=== PATIENT | female | born 1975 | race Two or more races ===

== ENCOUNTER 2016-12-03 16:46 | Inpatient (IN) | payer BC ==
[~2016-12-03] VITALS: Ht 154.9 cm; Wt 74.1 kg
[~2016-12-03 16:46] MED LIST: LAC PO; MAC100 PO; ZOF4 PO
--- NOTE | 2016-12-03 17:11 | NUR ---
PT IS A 41 YEAR OLD FEMALE, PRESENTS TO ED VIA [facility] FROM HOME, WITH C/O ALOC. PER MEDIC, FATHER FOUND PT SUPINE ON FLOOR AND CALLED 911. PT WAS RECENTLY DX WITH KIDNEY INFECTION. PT TAKES 2 UNKNOWN ANTIBIOTICS AND SYNTHROID. UPON ARRIVAL PT GCS OF 3. EYE RESPONSE-NO RESPONSE, VERBAL RESPONSE- NO RESPONSE, MOTOR RESPONSE-NO RESPONSE. DID STERNAL RUB ON PT NO RESPONSE. DID ARM DROP, NO RESPONSE, THEN DID AN ARM FACE DROP AND NO RESPONSE (ARM FELL ONTO FACE). UPON ASSESSMENT, USED X1 AMMONIA INHALANT ON PT, AND NOTICED EYE MOVEMENT WITH EYELIDS CLOSED, THEN PT STARTED OPENING EYES LOOKING AROUND. CALLED PTS NAME AND PT DID A LITTLE GRUNT, AND CLOSED EYES AGAIN. PUPIL REACTION WAS BRISK AND EQUAL. 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 VITAL SIGNS ARE STABLE. PT BREATHING IS EVEN AND UNLABORED, NO S/S OF RESPRAITORY DISTRESS. PT AWIAITING MSE.
[2016-12-03 17:22] LABS: AMPHETAMINE QUAL UR NONE DETECTED (NEG <=1000)
--- NOTE | 2016-12-03 17:35 | NUR ---
PTS GAVE ME PTS DR. DR. TRE NICOLE [phone]
--- NOTE | 2016-12-03 17:36 | NUR ---
POT PULLER AT BEDSIDE COLLECTING BLOOD.PT RESP EVEN AND UNLABORED, PT REMAINS ONCARDIAC MONITOR NSR @85
--- NOTE | 2016-12-03 17:37 | NUR ---
1 LITER FLUIDS NOW INFUSING PER ORDERS.
--- NOTE | 2016-12-03 17:44 | NUR ---
PT LEAVING FOR CT WITH SIDERAILS UP FOR SAFETY.RESP EVEN AND UNLABORED
--- NOTE | 2016-12-03 17:47 | NUR ---
PT TAKEN TO CT VIA RNOEMI.
[2016-12-03 17:50] LABS: BASOPHIL % 0.2 % (0-2); PLATELET COUNT 257 x10^3mcL (130-400); RED CELL DISTRIBUTION WIDTH 12.8 % (11.5-14.5)
--- NOTE | 2016-12-03 17:54 | NUR ---
I ASKE DPTS IF PT TAKES ANY OTHER MEDICATION THAT IS PRESCRIBED, FOR ANXIETY POSSIBLY. PTS REPLIED "UMMM I THINK SOMETHING CALLED LORAZEPAM".
--- NOTE | 2016-12-03 17:57 | NUR ---
PT BACK FROM CT VIA GURNEY, WITHOUT ICNIDENCE.
[2016-12-03 17:59] LABS: CALCIUM 8.1 mg/dL (8.5-10.1); CARBON DIOXIDE 28.3 mmol/L (21-32); CHLORIDE SERUM 106 mmol/L (98-107); CREATININE SERUM 0.7 mg/dL (0.6-1.0); GFR1 > 60 mL/min; GLUCOSE SERUM 128 mg/dL (74-106); POTASSIUM SERUM 4.2 mmol/L (3.5-5.1); SODIUM SERUM 142 mmol/L (136-145)
[2016-12-03 18:03] LABS: ALBUMIN 3.7 g/dL (3.4-5.0); ALKALINE PHOSPHATASE 71 U/L (46-116); BILIRUBIN TOTAL 0.61 mg/dL (0.20-1.00); TOTAL PROTEIN, SERUM 7.3 g/dL (6.4-8.2)
[2016-12-03 18:20] LABS: ALT/SGPT 23 U/L (14-59); AST/SGOT 20 U/L (15-37)
--- NOTE | 2016-12-03 18:26 | NUR ---
PT CONVERSING WITH PT AT THIS TIME.
[2016-12-03] MEDS ORDERED: LEXAPRO5 M1 PO (19:37)
[2016-12-03] MEDS ORDERED: LEXAPRO20 MG PO (19:38)
[2016-12-03] MEDS ORDERED: ATIVAN0.5 M1 PO (19:38)
--- NOTE | 2016-12-03 19:39 | NUR ---
ATTEMPTED TO ROAD TEST PT AND PTS WAS STILL VERY UNSTEADY AND DECIDED TO BE ADMITTED TO THE HOSPITAL.
--- NOTE | 2016-12-03 19:57 | NUR ---
REPORT CALLED TO GABRIEL TO ASSUME CARE OF PT ON TELE FLOOR.
[2016-12-03 20:07] LABS: AMYLASE 43 U/L (25-115); LIPASE 149 IU/L (73-393); MAGNESIUM 1.6 mg/dL (1.8-2.4); PHOSPHOROUS 3.1 mg/dL (2.5-4.9)
[2016-12-03 20:11] LABS: CHOLESTEROL 209 mg/dL (<200); CHOLESTEROL/HDL RATIO 6.1; HDL CHOLESTEROL 34 mg/dL (40-60); TRIGLYCERIDES 461 mg/dL (<150)
--- NOTE | 2016-12-03 20:16 | NUR ---
PT TRANSPORTED TO [facility]IA [facility] ON CM BY WADE Cameron RN AND ERIC CONLEY. PT IN NAD
[2016-12-03 20:17] LABS: T3 TOTAL 1.04 ng/mL
[2016-12-03 20:32] LABS: FREE T4 0.7 ng/dL (0.76-1.46); FREE THYROXINE INDEX 1.9 ug/dL (1.4-4.5)
[2016-12-03 20:44] VITALS: BP 137/68
--- NOTE | 2016-12-03 20:55 | NUR ---
RECEIVED PATIENT FROM ED VIA GUERNOEMI, PATIENT WITH GENERALIZED WEAKNESS, SPOUSE AT BEDSIDE, ALERT AND ORIENTED, NO SOB NOTED, PATIENT WITH C/O PAIN TO LEFT AND RIGHT FLANK PAIN AND WILL MEDICATE ORDERED, ORIENTED PATIENT TO ROOM AND SURROUNDINGS, BED IN LOW POSITION, BED RAILS UP X 2, CALL LIGHT WITHIN REACH, WILL ENDORSE CARE TO GABRIEL SANDERS
[2016-12-03 20:57] LABS: microscopic required? NO
--- NOTE | 2016-12-03 21:00 | NUR ---
RECEIVED PT FROM NYDIA SANDERS. PT AWAKE/LETHARGIC. SHIVERING, AFEBRILE . DENIES PAIN. DENIES SOB ON RA. IV PATENT. DR CEE AT BEDSIDE. AT BEDSIDE. NO ACUTE DISTRESS. ORIENTED TO ROOM AND SURROUNDINGS. CALL LIGHT WITHIN REACH, BED IN LOW POSITION. WILL CONTINUE TO MONITOR.
[2016-12-03 21:07] LABS: UA SPECIFIC GRAVITY 1.025 (1.005-1.035); urine erythrocyte NEGATIVE (NEGATIVE)
--- NOTE | 2016-12-04 00:15 | NUR ---
PT RESTING AT THIS TIME IN NO ACUTE DISTRESS. RR EVEN AND UNLABORED. IV PATENT AND INFUSING WELL WITH NO S/S OF INFILTRATION. CALL LIGHT WITHIN REACH, BED IN LOW POSITION. WILL CONTINUE TO MONITOR.
[2016-12-04 06:00] VITALS: BP 124/76
[2016-12-04 06:19] LABS: BASOPHIL % 0.4 % (0-2); PLATELET COUNT 223 x10^3mcL (130-400); RED CELL DISTRIBUTION WIDTH 12.8 % (11.5-14.5)
[2016-12-04 06:27] LABS: CALCIUM 8.4 mg/dL (8.5-10.1); CARBON DIOXIDE 26.9 mmol/L (21-32); CHLORIDE SERUM 104 mmol/L (98-107); CREATININE SERUM 0.5 mg/dL (0.6-1.0); GFR1 > 60 mL/min; GLUCOSE SERUM 92 mg/dL (74-106); MAGNESIUM 2.3 mg/dL (1.8-2.4); PHOSPHOROUS 3.1 mg/dL (2.5-4.9); POTASSIUM SERUM 3.9 mmol/L (3.5-5.1); SODIUM SERUM 140 mmol/L (136-145)
--- NOTE | 2016-12-04 07:25 | NUR ---
REASSESSMENT DONE. PT AWAKE, COOPERATIVE OF CARE. A&O x4, DENIES CP, SOB, ABD PAIN. GENERALIZED WEAKNESS NOTED. PT TO AKS FOR HELP WHEN AMBULATING (EXPLAINED). SKIN INTACT. IV INFUSING WELL TO LAC 20 GAUGE LAC NS AT 50ML/HR. BED IN LOWEST POSITION, CALL LIGHT WITHIN REACH. WILL CONTINUE TO MONITOR.
[2016-12-04 08:55] VITALS: BP 101/74
--- NOTE | 2016-12-04 12:00 | NUR ---
PT IN LOW FOWLERS. NO DISTRESS NOTED. PT DENIES ANY DISCOMFORT. STATES FEELING SLIGHTLY STRONGER. CALL LIGHT WITHIN REACH.
[2016-12-04 13:07] VITALS: BP 118/75
--- NOTE | 2016-12-04 13:20 | NUR ---
PT C/O OF GENERALIZED WEAKNESS. VS STABLE 118/75; 98.2; 79; 16; 98% ROOM AIR. BLOOD GLUCOSE: 153. PT DENIES CP, SOB. DR MAGALLANES INFORMED OF PT STATUS. CALL LIGHT WITHIN REACH. WILL CONTINUE TO MONITOR.
[2016-12-04 17:23] VITALS: BP 123/79
--- NOTE | 2016-12-04 18:45 | NUR ---
NEW IV BAG HUNG, PT TOLERATING WELL. PT MORE TALKATIVE, STATES FEELING BETTER. NO DISTRESS, DENIES CP, SOB. CALL LIGHT WITHIN REACH.
--- NOTE | 2016-12-04 19:47 | NUR ---
RECEIVED PT FROM PREVIOUS SHIFT. PT A/OX4. DENIES PAIN. DENIES SOB. NO ACUTE DISTRESS. IV PATENT. CALL LIGHT WITHIN REACH, BED IN LOW POSITION. WILL CONTINUE TO MONITOR.
[2016-12-04 21:27] VITALS: BP 129/73
--- NOTE | 2016-12-05 00:19 | NUR ---
PT RESTING AT THIS TIME IN NO ACUTE DISTRESS. RR EVEN AND UNLABORED. IV PATENT. CALL LIGHT WITHIN REACH, BED IN LOW POSITION. WILL CONTINUE TO MONITOR.
[2016-12-05 05:58] VITALS: BP 127/82
--- NOTE | 2016-12-05 07:25 | NUR ---
REASSESSMENT DONE. PT AWAKE, COOPERATIVE OF CARE. GENERALIZED WEAKNESS NOTED. PT STATES FEELING A LITTLE IMPROVEMENT ON WEAKNESS. PT STATES VAGINAL BLEEDING, STATES PREVIOUSLY BLEEDING THREE MONTHS AGO UNTIL THIS MORNING. IV INFUSING WELL TO LAC #20, NS AT 50ML/HR. BED IN LOWEST POSITION, CALL LIGHT WITHIN REACH. WILL CONTINUE TO MONITOR.
[2016-12-05 07:28] LABS: CALCIUM 8.4 mg/dL (8.5-10.1); CARBON DIOXIDE 25.3 mmol/L (21-32); CHLORIDE SERUM 105 mmol/L (98-107); CREATININE SERUM 0.6 mg/dL (0.6-1.0); GFR1 > 60 mL/min; GLUCOSE SERUM 101 mg/dL (74-106); POTASSIUM SERUM 3.8 mmol/L (3.5-5.1); SODIUM SERUM 140 mmol/L (136-145)
[2016-12-05 07:54] LABS: BASOPHIL % 0.3 % (0-2); PLATELET COUNT 238 x10^3mcL (130-400); RED CELL DISTRIBUTION WIDTH 13.2 % (11.5-14.5)
--- NOTE | 2016-12-05 08:40 | NUR ---
DR. MAGALLANES MADE AWARE OF PT'S C/O VAGINAL BLEEDING.
[2016-12-05 09:51] VITALS: BP 137/83
--- NOTE | 2016-12-05 12:44 | NUR ---
PT SITTING AT SIDE OF BED. PT AMBULATORY WITH STEADY GAIT NOTED. PT STATES FEELING BETTER. ABLE TO AMBULATE WITH EASE. CALL LIGHT WITHIN REACH.
[2016-12-05 14:15] VITALS: BP 128/78
--- NOTE | 2016-12-05 14:40 | NUR ---
P.T. 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 S:Pt WAS SEEN AWAKE & ALERT IN BED, SPEAKS SYRIAN/DIVEHI; SPEECH CLEAR; ORIENTED x4, ABLE TO FOLLOW COMMANDS, AGREEABLE & COOPE- RATIVE W/ P.T.; NO C/O PAIN OR DIZZINESS AT THIS TIME; EXPRESSES SHE MIGHT "FEEL STRESSED, HER COULD NOT KEEP A JOB, DOES NOT HELP AT HOME, NEEDS TO BE TOLD WHAT TO DO". O: BED MOBILITY: INDEP IN SUPINE TO SIT TRANSFERS: INDEP IN SIT TO STAND GAIT: SUP/I WITHOUT ASST DEVICE X 462 FT Pt RETURNED TO BED SAFELY; HOB ELEVATED, CALL ROSS, PHONE, TABLE IN REACH; APPRECIATIVE; ON ROOM AIR. A:Pt DEMO GOOD RESPONSE TO P.T. SESSION; NO NOTED LOSS OF BALANCE DURING GAIT, NO NOTED FACIAL DROOPING OR DROOLING OR ONE SIDED LEANING AT THIS TIME; Pt EDUC ON SAFE GAIT, AMBU W/ NURSE STAFF AD YO, USE OF CALL LIGHT FOR NRUSE ASSIST, VERBALIZED UNDER- STANDING, GOOD FOLLOW THRU; DU=673/85, 147/84, HR=85, O2 SAT ROOM AIR=99%. P:D/C FROM P.T. AFTER EVAL, NURSING TO AMBU PATIENT AD YO. EVAL30 GCODES:[id number] TUG SCORE:10 sec
[2016-12-05 16:26] VITALS: BP 128/78
--- NOTE | 2016-12-05 16:50 | NUR ---
DISCHARGE INSTRUCTIONS GIVEN TO PATIENT. PATIENT VERBALIZED UNDERSTANDING FOR FOLLOW UP APPOINTMENTS WITH PCP. IV DC'D CATHETER INTACT, NO PHLEBITIS AT SITE. TELE BOX REMOVED.
--- NOTE | 2016-12-05 17:09 | NUR ---
PT ESCORTED OUT OF UNIT SAFELY VIA WHEELCHAIR. ACCOMPANIED BY STAFF MEMBER.
== END 2016-12-05 17:08 | disposition home or self-care (01) | DRG 443 ==
LOC: ED 16:46 → DU 19:13
PROVIDERS: Emergency Medicine; ADMIT Family Medicine
DX: K72.90 Hepatic failure, unspecified without coma (principal); F32.9 Major depressive disorder, single episode, unspecified; E78.2 Mixed hyperlipidemia; F41.1 Generalized anxiety disorder; E66.9 Obesity, unspecified; Z68.30 Body mass index [BMI] 30.0-30.9, adult; Z87.440 Personal history of urinary (tract) infections; Z80.9 Family history of malignant neoplasm, unspecified; Z83.3 Family history of diabetes mellitus; Z82.49 Family history of ischemic heart disease and other diseases of the circulatory system
CPT/HCPCS: 80307; 82962; 83880; 84439; G0480; J3475; J7030; Q0092

== ENCOUNTER 2016-12-09 21:25 | Emergency (ER) | payer BC ==
[~2016-12-09 21:25] MED LIST changes: +ATIVAN0.5 M1 PO; +LEXAPRO20 MG PO; +LEXAPRO5 M1 PO
[2016-12-09 23:52] VITALS: BP 135/80
== END 2016-12-09 23:05 | disposition left against medical advice (07) ==
LOC: ED 21:25
DX: Z53.21 Procedure and treatment not carried out due to patient leaving prior to being seen by health care provider (principal); Z86.59 Personal history of other mental and behavioral disorders

== ENCOUNTER 2017-02-19 11:37 | Observation (INO) | payer OTHER ==
[~2017-02-19] VITALS: Ht 154.9 cm; Wt 72.3 kg
[~2017-02-19 11:37] MED LIST changes: +CELEBREX200 MG PO; +HYDROCORTISONE PO; +NATURAL IRON65 MG PO
--- NOTE | 2017-02-19 11:37 | NUR ---
PTPT BIBA C/O GENERALIZED WEAKNESS, PER MEDIC PT'S CORTISONE LEVEL IS LOW, AND STS HER MD IS ON VACATION. PER PTSIGNED HERSE[place] [facility] [place] PT ON CM VSS. AWAITING DR HANEY.
--- NOTE | 2017-02-19 12:37 | NUR ---
ED PHYSICIAN AT BEDSIDE FOR PATIENT EVALUATION. MEDICAL SCREENING EXAMINATION COMPLETED BY ED PHYSICIAN.
--- NOTE | 2017-02-19 12:40 | NUR ---
ED PHYSICIAN AT BEDSIDE FOR PATIENT EVALUATION. MEDICAL SCREENING EXAMINATION COMPLETED BY ED PHYSICIAN.
[2017-02-19 13:21] LABS: CALCIUM 8.8 mg/dL (8.5-10.1); CARBON DIOXIDE 27.8 mmol/L (21-32); CHLORIDE SERUM 103 mmol/L (98-107); CREATININE SERUM 0.6 mg/dL (0.6-1.0); GFR1 > 60 mL/min; GLUCOSE SERUM 114 mg/dL (74-106); POTASSIUM SERUM 3.5 mmol/L (3.5-5.1); SODIUM SERUM 139 mmol/L (136-145)
[2017-02-19 13:25] LABS: ALKALINE PHOSPHATASE 46 U/L (46-116); ALT/SGPT 39 U/L (14-59); AST/SGOT 12 U/L (15-37); BILIRUBIN TOTAL 0.68 mg/dL (0.20-1.00); CHOLESTEROL 164 mg/dL (<200); HDL CHOLESTEROL 40 mg/dL (40-60); PHOSPHOROUS 4.8 mg/dL (2.5-4.9); URIC ACID 4.7 mg/dL (2.6-6.0)
[2017-02-19 13:26] LABS: ALBUMIN 3.1 g/dL (3.4-5.0); TOTAL PROTEIN, SERUM 6.1 g/dL (6.4-8.2)
[2017-02-19 13:36] LABS: PLATELET COUNT 223 x10^3mcL (130-400); RED CELL DISTRIBUTION WIDTH 14.4 % (11.5-14.5)
[2017-02-19 14:16] LABS: BAND NEUTROPHIL 2 % (0-10); MONOCYTE 1 % (0-7); SEGMENTED NEUTROPHILS 85 % (37-75); rbc morphology (normal/abnorm) NORMAL (NORMAL)
[2017-02-19 14:17] LABS: PLATELET MORPHOLOGY N
--- NOTE | 2017-02-19 14:40 | NUR ---
MRSA SPECIMEN TAKEN AND SENT TO LAB
--- NOTE | 2017-02-19 14:47 | NUR ---
MRSA SPECIMEN TAKEN AND SEMT TO LAB
--- NOTE | 2017-02-19 14:51 | NUR ---
REPORT GIVEN TO NYDIA.
[2017-02-19 16:16] VITALS: BP 146/75
--- NOTE | 2017-02-19 16:24 | NUR ---
RECEIVED PATIENT FROM ED VIA GUERNEY, PATIENT ALERT AND ORIENTED, TELE # 43 SR, IV ACCESS TO RFA WNL, NO C/O PAIN AT THIS TIME, ORIENTED PATIENT TO ROOM AND SURROUNDINGS, BED RAILS UP X 2, CALL LIGHT WITHIN REACH, WILL ENDORSE CARE TO PRIMARY NURSE KOURTNEY SANDERS
[2017-02-19 16:53] LABS: MAGNESIUM 1.9 mg/dL (1.8-2.4)
[2017-02-19 17:01] LABS: T3 TOTAL 0.93 ng/mL
[2017-02-19 17:14] LABS: FREE T4 1.23 ng/dL (0.76-1.46); FREE THYROXINE INDEX 2.7 ug/dL (1.4-4.5); T4(THYROXINE) 7.7 ug/dL (4.7-13.3)
[2017-02-19 18:12] VITALS: BP 128/69
--- NOTE | 2017-02-19 18:59 | NUR ---
CONDITION STABLE. AMBULATORY. DENIED DIZZINESS. ENDORSED CARE TO NOC NURSE.
--- NOTE | 2017-02-19 19:30 | NUR ---
RECEIVED REPORT FROM MARILYN OCONNELL. PT SITTING ON THE SIDE OF THE BED, EATING DINNER. IN NO ACUTE DISTRESS OR DISCOMFORT. AAOX4. ADMITS TO GUERRERO AND MILD DIZZINESS. WILL GIVE TYLENOL PER PRN ORDERS. ON TELE MON 43 SR. DENIES OF ANY CHEST DISCOMFORT. PER PULSES STRONG. NEG ON EDEMA. IN RA WITH SAT OF 98%. BREATHING EVENLY AND UNLABORED. NO SOB NOTED. LUNGS CTA. BS ACTIVE. ABD SOFT AND NON DISTENDED. LAST BM 02/18 FORMED STOOL PER PT. VOIDS FREELY. GEN WEAKNESS BUT AMBULATES STEADILY. IV ON RFA PATENT. SAFETY MEASURES ENSURED. INSTRUCTED PT TO CALL FOR ANY NEEDS/ASSISTANCE OR DEVELOPING ANY WORSENING SYMPTOMS. SAFETY MEASURES ENSURED. CALL LIGHT WITHIN REACH.
[2017-02-19 21:36] VITALS: BP 105/64
--- NOTE | 2017-02-20 05:13 | NUR ---
PT SLEPT COMFORTABLY THROUGH OUT THE NIGHT. WAS IN NO ACUTE DISTRESS OR DISCOMFORT. SAFETY MEASURES WERE ENSURED. CALL LIGHT WITHIN REACH. EASILY AROUSABLE AND ALERT AND ORIENTED THROUGH OUT.
[2017-02-20 05:19] VITALS: BP 132/71
[2017-02-20 05:41] VITALS: BP 119/63
--- NOTE | 2017-02-20 07:46 | NUR ---
UA COLLECTED. SITTING BEDSIDE. NO DISTRESS NOTED.
[2017-02-20 08:24] LABS: microscopic required? NO
[2017-02-20 08:59] VITALS: BP 133/62
[2017-02-20 09:10] LABS: UA SPECIFIC GRAVITY 1.015 (1.005-1.035); urine erythrocyte NEGATIVE (NEGATIVE)
--- NOTE | 2017-02-20 09:31 | NUR ---
ALERT AND ORIENTED, REPORTED H/A AND LIGHTHEADEDNESS, DECLINES PAIN MEDICATION. TELE # 43, SINUS IRINA, HR 57, NO DISTRESS NOTED. PULSES PRESENT, NO EDEMA NOTED. BREATHING UNLABORED, NO DISTRESS NOTED. LBM 02/18/17. REPORTS NO DIFFICULTY VOIDING. AMB TO BATHROOM, STEADY. SKIN DRY AND INTACT. IVF RFA, NS @ 120, IV WNL.
[2017-02-20 09:46] LABS: AMPHETAMINE QUAL UR NONE DETECTED (NEG <=1000)
--- NOTE | 2017-02-20 10:08 | NUR ---
TALKING ON PHONE WITH PCP OFFICE, TRYING TO MAKE APPOINTMENT WITH ANOTHER GLUE MIXER.
--- NOTE | 2017-02-20 10:17 | NUR ---
UNABLE TO GET AN ENDROCRINOLOGIST APPOINTMENT UNTIL 03/31. WANTS TO LEAVE NOW AND GO TO PCP TO GET THEIR HELP MAKING APPOINTMENT. TOLD PATIENT WE COULD HELP WITH APPOINTMENT, DOES NOT WANT OUR HELP. WANTS TO SIGN OUT AMA AND GO TO PCP NOW. PAGED AND SPOKE WITH DR ROMERO AND MADE AWARE THAT WANTS TO LEAVE AMA WITH PRESCRIPTION.
--- NOTE | 2017-02-20 10:47 | NUR ---
DR ROMERO IN TO SEE PATIENT. AMA FORM SIGNED AND PLACED IN CHART. SCRIPT GIVEN.
--- NOTE | 2017-02-20 10:52 | NUR ---
IV D/C, CATHETER INTACT. PRESCRPTION GIVEN. WHEELED DOWN TO LOBBY, PATIENT LEAVING AMA.
== END 2017-02-20 10:52 | disposition left against medical advice (07) | DRG 643 ==
LOC: ED 11:37 → DU 13:58
PROVIDERS: Emergency Medicine; ADMIT Family Medicine
DX: E27.40 Unspecified adrenocortical insufficiency (principal); N17.0 Acute kidney failure with tubular necrosis; E44.0 Moderate protein-calorie malnutrition; R73.03 Prediabetes; D64.9 Anemia, unspecified; Z91.19 Patient's noncompliance with other medical treatment and regimen
CPT/HCPCS: 83880; 84439; G0378; J1720; J7030; Q0092

== ENCOUNTER 2017-02-28 | Inpatient (IN) | payer OTHER ==
[2017-02-28] VITALS (8 sets, daily range): BP systolic 125–157; BP diastolic 65–77
[~2017-02-28] VITALS: Ht 154.9 cm; Wt 75.0 kg
[2017-02-28 01:06] LABS: CALCIUM 7.9 mg/dL (8.5-10.1); CARBON DIOXIDE 27.6 mmol/L (21-32); CHLORIDE SERUM 104 mmol/L (98-107); CREATININE SERUM 0.8 mg/dL (0.6-1.0); GFR1 > 60 mL/min; GLUCOSE SERUM 180 mg/dL (74-106); POTASSIUM SERUM 3.1 mmol/L (3.5-5.1); SODIUM SERUM 141 mmol/L (136-145)
[2017-02-28 01:13] LABS: BASOPHIL % 0.3 % (0-2); PLATELET COUNT 211 x10^3mcL (130-400)
[2017-02-28 01:14] LABS: RED CELL DISTRIBUTION WIDTH 15.3 % (11.5-14.5)
[2017-02-28 01:19] LABS: ALKALINE PHOSPHATASE 52 U/L (46-116); ALT/SGPT 75 U/L (14-59); AST/SGOT 13 U/L (15-37); BILIRUBIN TOTAL 0.6 mg/dL (0.20-1.00)
[2017-02-28 01:22] LABS: ALBUMIN 3.1 g/dL (3.4-5.0); CK-MB 0.8 ng/mL (0-3.6); T4(THYROXINE) 3.9 ug/dL (4.7-13.3); TOTAL PROTEIN, SERUM 6.1 g/dL (6.4-8.2)
[2017-02-28 04:23] LABS: CHOLESTEROL/HDL RATIO 3.7; MAGNESIUM 1.9 mg/dL (1.8-2.4); PHOSPHOROUS 2.6 mg/dL (2.5-4.9)
[2017-02-28] MEDS ORDERED: CELEBREX200 MG PO (05:19)
[2017-03-01 02:02] LABS: microscopic required? NO
[2017-03-01 02:52] LABS: UA SPECIFIC GRAVITY <=1.005 (1.005-1.035); urine erythrocyte NEGATIVE (NEGATIVE)
[2017-03-01 03:01] LABS: AMPHETAMINE QUAL UR NONE DETECTED (NEG <=1000)
[2017-03-01 06:13] VITALS: BP 165/66
[2017-03-01 10:00] VITALS: BP 162/70
[2017-03-01 10:44] VITALS: BP 162/70
== END 2017-03-01 12:09 | disposition home or self-care (01) | DRG 643 ==
LOC: ED → DU 03:24
PROVIDERS: Emergency Medicine; ADMIT Family Medicine
DX: E27.40 Unspecified adrenocortical insufficiency (principal); G93.41 Metabolic encephalopathy; E44.0 Moderate protein-calorie malnutrition; E72.20 Disorder of urea cycle metabolism, unspecified; K72.90 Hepatic failure, unspecified without coma; E87.6 Hypokalemia; F41.1 Generalized anxiety disorder; E66.9 Obesity, unspecified; E03.9 Hypothyroidism, unspecified; E78.2 Mixed hyperlipidemia; Z90.710 Acquired absence of both cervix and uterus; Z80.9 Family history of malignant neoplasm, unspecified; Z83.3 Family history of diabetes mellitus; Z82.49 Family history of ischemic heart disease and other diseases of the circulatory system; Z68.31 Body mass index [BMI] 31.0-31.9, adult
CPT/HCPCS: 82962; 83880; G0480; J1720; J3480; J7030; Q0092

== ENCOUNTER 2017-08-27 09:36 | Inpatient (IN) | payer OTHER ==
[~2017-08-27] VITALS: Ht 154.9 cm; Wt 79.0 kg
[2017-08-27 10:29] LABS: BASOPHIL % 0.3 % (0-2); PLATELET COUNT 295 x10^3mcL (130-400); RED CELL DISTRIBUTION WIDTH 12.1 % (11.5-14.5)
[2017-08-27 10:49] LABS: CALCIUM 9.6 mg/dL (8.5-10.1); CARBON DIOXIDE 26.1 mmol/L (21-32); CHLORIDE SERUM 101 mmol/L (98-107); CREATININE SERUM 0.7 mg/dL (0.6-1.0); GFR1 > 60 mL/min; GLUCOSE SERUM 114 mg/dL (74-106); POTASSIUM SERUM 3.9 mmol/L (3.5-5.1); SODIUM SERUM 138 mmol/L (136-145)
[2017-08-27 10:54] LABS: ALBUMIN 3.9 g/dL (3.4-5.0); ALKALINE PHOSPHATASE 49 U/L (46-116); ALT/SGPT 57 U/L (14-59); AST/SGOT 26 U/L (15-37); BILIRUBIN TOTAL 1.26 mg/dL (0.20-1.00); CHOLESTEROL 227 mg/dL (<200); HDL CHOLESTEROL 39 mg/dL (40-60); PHOSPHOROUS 1.6 mg/dL (2.5-4.9); TOTAL PROTEIN, SERUM 7.6 g/dL (6.4-8.2); URIC ACID 4.9 mg/dL (2.6-6.0)
[2017-08-27] MEDS ORDERED: HYDROCORTISONE PO ×2 (12:40→12:41)
[2017-08-27] MEDS ORDERED: CITALOPRAM PO (12:43)
[2017-08-27 13:06] LABS: microscopic required? NO
[2017-08-27 13:17] LABS: urine erythrocyte NEGATIVE (NEGATIVE)
[2017-08-27 13:44] LABS: AMPHETAMINE QUAL UR NONE DETECTED (NEG <=1000)
[2017-08-27 14:29] LABS: FREE T4 0.86 ng/dL (0.76-1.46); FREE THYROXINE INDEX 2.2 ug/dL (1.4-4.5); T4(THYROXINE) 6.4 ug/dL (4.7-13.3)
[2017-08-27 14:33] LABS: CHOLESTEROL/HDL RATIO 5.8
[2017-08-27 15:53] VITALS: BP 129/85
[2017-08-27 15:58] VITALS: Ht 154.9 cm; Wt 79.0 kg
[2017-08-27 21:04] VITALS: BP 126/81
[2017-08-28 05:22] VITALS: BP 122/61
[2017-08-28 07:10] LABS: CALCIUM 8.4 mg/dL (8.5-10.1); CARBON DIOXIDE 24.3 mmol/L (21-32); CHLORIDE SERUM 104 mmol/L (98-107); CREATININE SERUM 0.6 mg/dL (0.6-1.0); GFR1 > 60 mL/min; GLUCOSE SERUM 99 mg/dL (74-106); POTASSIUM SERUM 3.7 mmol/L (3.5-5.1); SODIUM SERUM 141 mmol/L (136-145)
[2017-08-28 07:26] LABS: BASOPHIL % 0.5 % (0-2); PLATELET COUNT 249 x10^3mcL (130-400); RED CELL DISTRIBUTION WIDTH 12.5 % (11.5-14.5)
[2017-08-28 08:05] VITALS: BP 136/86
[2017-08-28 09:02] VITALS: BP 114/69
[2017-08-28] MEDS ORDERED: CEL20 PO (10:55)
[2017-08-28 13:00] VITALS: BP 126/82
[2017-08-28 16:28] VITALS: BP 117/81
[2017-08-28 20:02] VITALS: BP 143/81
[2017-08-29 05:02] VITALS: BP 129/78
[2017-08-29 06:19] LABS: BASOPHIL % 0.4 % (0-2); PLATELET COUNT 255 x10^3mcL (130-400); RED CELL DISTRIBUTION WIDTH 12.4 % (11.5-14.5)
[2017-08-29 06:32] LABS: CALCIUM 8.9 mg/dL (8.5-10.1); CARBON DIOXIDE 24.9 mmol/L (21-32); CHLORIDE SERUM 105 mmol/L (98-107); CREATININE SERUM 0.6 mg/dL (0.6-1.0); GFR1 > 60 mL/min; GLUCOSE SERUM 111 mg/dL (74-106); MAGNESIUM 1.9 mg/dL (1.8-2.4); PHOSPHOROUS 3.6 mg/dL (2.5-4.9); POTASSIUM SERUM 3.9 mmol/L (3.5-5.1); SODIUM SERUM 142 mmol/L (136-145)
[2017-08-29] MEDS ORDERED: DEP250 PO (07:45)
[2017-08-29 09:26] VITALS: BP 129/81
[2017-08-29] MEDS ORDERED: CITALOPRAM HYDR20 M1 PO (09:29)
[2017-08-29] MEDS ORDERED: DEPAKOTE ER250 M1 PO (09:29)
[2017-08-29 10:21] VITALS: BP 129/78
== END 2017-08-29 12:10 | disposition home or self-care (01) | DRG 644 ==
LOC: ED 09:36 → DU 14:43
PROVIDERS: Emergency Medicine; Family Medicine
DX: E27.40 Unspecified adrenocortical insufficiency (principal); F31.10 Bipolar disorder, current episode manic without psychotic features, unspecified; R73.03 Prediabetes; I10 Essential (primary) hypertension; F41.1 Generalized anxiety disorder; E78.5 Hyperlipidemia, unspecified; E66.9 Obesity, unspecified; Z68.32 Body mass index [BMI] 32.0-32.9, adult
CPT/HCPCS: 83880; 84439; J1720; J2405; J7030; Q0092

== ENCOUNTER 2017-11-05 21:05 | Emergency (ER) | payer OTHER ==
[~2017-11-05 21:05] MED LIST changes: +CEL20 PO; +CITALOPRAM HYDR20 M1 PO; +CITALOPRAM PO; +DEP250 PO; +DEPAKOTE ER250 M1 PO
[2017-11-05 22:10] LABS: BASOPHIL % 0.2 % (0-2); PLATELET COUNT 276 x10^3mcL (130-400); RED CELL DISTRIBUTION WIDTH 12.1 % (11.5-14.5)
[2017-11-05 22:25] LABS: CALCIUM 9.1 mg/dL (8.5-10.1); CARBON DIOXIDE 25.6 mmol/L (21-32); CHLORIDE SERUM 102 mmol/L (98-107); CREATININE SERUM 0.5 mg/dL (0.6-1.0); GFR1 > 60 mL/min; GLUCOSE SERUM 116 mg/dL (74-106); POTASSIUM SERUM 3.9 mmol/L (3.5-5.1); SODIUM SERUM 136 mmol/L (136-145)
[2017-11-05 22:30] LABS: ALBUMIN 3.6 g/dL (3.4-5.0); ALKALINE PHOSPHATASE 45 U/L (46-116); ALT/SGPT 55 U/L (14-59); AST/SGOT 27 U/L (15-37)
[2017-11-05 23:35] VITALS: BP 127/59
== END 2017-11-05 23:35 | disposition home or self-care (01) ==
LOC: ED 21:05
PROVIDERS: Emergency Medicine
DX: R41.82 Altered mental status, unspecified (principal); R53.1 Weakness; Z90.710 Acquired absence of both cervix and uterus; F32.9 Major depressive disorder, single episode, unspecified
CPT/HCPCS: J2060

== ENCOUNTER 2017-12-20 23:25 | Emergency (ER) | payer OTHER ==
[~2017-12-20] VITALS: Ht 154.9 cm; Wt 77.6 kg
[2017-12-20 23:30] VITALS: Ht 154.9 cm; Wt 77.6 kg
[2017-12-21 02:02] LABS: BASOPHIL % 0.4 % (0-2); PLATELET COUNT 262 x10^3mcL (130-400)
[2017-12-21 02:19] LABS: CALCIUM 8.9 mg/dL (8.5-10.1); CARBON DIOXIDE 26.9 mmol/L (21-32); CHLORIDE SERUM 102 mmol/L (98-107); CREATININE SERUM 0.6 mg/dL (0.6-1.0); GFR1 > 60 mL/min; GLUCOSE SERUM 112 mg/dL (74-106); POTASSIUM SERUM 3.7 mmol/L (3.5-5.1); SODIUM SERUM 137 mmol/L (136-145)
[2017-12-21 02:31] LABS: ALBUMIN 3.5 g/dL (3.4-5.0); ALKALINE PHOSPHATASE 58 U/L (46-116); ALT/SGPT 29 U/L (14-59); AST/SGOT 15 U/L (15-37); BILIRUBIN TOTAL 0.66 mg/dL (0.20-1.00); FREE T4 0.85 ng/dL (0.76-1.46); LIPASE 108 IU/L (73-393); MAGNESIUM 2.1 mg/dL (1.8-2.4); TOTAL PROTEIN, SERUM 6.8 g/dL (6.4-8.2)
[2017-12-21 03:09] LABS: microscopic required? NO
[2017-12-21 03:16] LABS: UA SPECIFIC GRAVITY 1.015 (1.005-1.035); urine erythrocyte NEGATIVE (NEGATIVE)
[2017-12-21 03:24] LABS: AMPHETAMINE QUAL UR NONE DETECTED (NEG <=1000)
[2017-12-21 05:49] VITALS: BP 133/76
== END 2017-12-21 05:49 | disposition home or self-care (01) ==
LOC: ED 23:25
PROVIDERS: Emergency Medicine
DX: R53.1 Weakness (principal); Z90.710 Acquired absence of both cervix and uterus
CPT/HCPCS: 84439; G0480; J1720; J1885; J7030; Q0092

== ENCOUNTER 2018-01-07 02:56 | Emergency (ER) | payer OTHER ==
[~2018-01-07] VITALS: Ht 154.9 cm; Wt 76.7 kg
[2018-01-07 03:00] VITALS: Ht 154.9 cm; Wt 76.7 kg
[2018-01-07 04:16] LABS: BASOPHIL % 0.4 % (0-2); PLATELET COUNT 208 x10^3mcL (130-400); RED CELL DISTRIBUTION WIDTH 12.7 % (11.5-14.5)
[2018-01-07 04:23] LABS: CARBON DIOXIDE 28.9 mmol/L (21-32); CHLORIDE SERUM 103 mmol/L (98-107); CREATININE SERUM 0.5 mg/dL (0.6-1.0); GFR1 > 60 mL/min; GLUCOSE SERUM 98 mg/dL (74-106); POTASSIUM SERUM 3.7 mmol/L (3.5-5.1); SODIUM SERUM 135 mmol/L (136-145)
[2018-01-07 04:28] LABS: ALKALINE PHOSPHATASE 48 U/L (46-116); ALT/SGPT 22 U/L (14-59); AST/SGOT 12 U/L (15-37); BILIRUBIN TOTAL 0.82 mg/dL (0.20-1.00); TOTAL PROTEIN, SERUM 6.7 g/dL (6.4-8.2)
[2018-01-07 04:29] LABS: ALBUMIN 3.3 g/dL (3.4-5.0)
[2018-01-07 06:33] VITALS: BP 130/68
== END 2018-01-07 06:33 | disposition home or self-care (01) ==
LOC: ED 02:56
PROVIDERS: Emergency Medicine
DX: R25.2 Cramp and spasm (principal); M79.1 Myalgia; M25.50 Pain in unspecified joint
CPT/HCPCS: 83880; J1720; J1885; J2765; Q0092

== ENCOUNTER 2019-02-17 18:32 | Emergency (ER) | payer SELFPAY ==
[~2019-02-17] VITALS: Ht 162.6 cm; Wt 73.5 kg
[2019-02-17 18:37] VITALS: Ht 162.6 cm; Wt 73.5 kg
[2019-02-17 19:20] LABS: BASOPHIL % 0.2 % (0-2); PLATELET COUNT 210 x10^3mcL (130-400); RED CELL DISTRIBUTION WIDTH 12.7 % (11.5-14.5)
[2019-02-17 19:30] LABS: CALCIUM 9.4 mg/dL (8.5-10.1); CARBON DIOXIDE 22.4 mmol/L (21-32); CHLORIDE SERUM 103 mmol/L (98-107); CREATININE SERUM 0.7 mg/dL (0.6-1.0); GFR1 > 60 mL/min; GLUCOSE SERUM 113 mg/dL (74-106); MAGNESIUM 1.7 mg/dL (1.8-2.4); POTASSIUM SERUM 3.5 mmol/L (3.5-5.1); SODIUM SERUM 139 mmol/L (136-145)
[2019-02-17 19:53] LABS: microscopic required? NO
[2019-02-17 20:25] LABS: UA SPECIFIC GRAVITY <=1.005 (1.005-1.035); urine erythrocyte NEGATIVE (NEGATIVE)
[2019-02-17 21:28] VITALS: BP 136/68
== END 2019-02-17 21:28 | disposition home or self-care (01) ==
LOC: ED 18:32
PROVIDERS: Emergency Medicine
DX: F41.9 Anxiety disorder, unspecified (principal); R06.4 Hyperventilation
CPT/HCPCS: J2060; J2405; J7030

== ENCOUNTER 2019-06-07 13:04 | Emergency (ER) | payer SELFPAY ==
[~2019-06-07] VITALS: Ht 154.9 cm; Wt 89.4 kg
[2019-06-07 13:10] VITALS: BP 132/93; Ht 154.9 cm; Wt 89.4 kg
[2019-06-07 13:57] LABS: BASOPHIL % 0.5 % (0-2); PLATELET COUNT 266 x10^3mcL (130-400); RED CELL DISTRIBUTION WIDTH 12.1 % (11.5-14.5)
[2019-06-07 14:18] LABS: POTASSIUM SERUM 3.8 mmol/L (3.5-5.1); SODIUM SERUM 139 mmol/L (136-145)
[2019-06-07 14:47] LABS: ALBUMIN 3.7 g/dL (3.4-5.0); ALKALINE PHOSPHATASE 65 U/L (46-116); ALT/SGPT 31 U/L (14-59); AST/SGOT 13 U/L (15-37); BILIRUBIN TOTAL 0.9 mg/dL (0.20-1.00); CALCIUM 8.6 mg/dL (8.5-10.1); CARBON DIOXIDE 28.9 mmol/L (21-32); CHLORIDE SERUM 102 mmol/L (98-107); CREATININE SERUM 0.7 mg/dL (0.6-1.0); GFR1 > 60 mL/min; GLUCOSE SERUM 154 mg/dL (74-106); MAGNESIUM 1.7 mg/dL (1.8-2.4); T4(THYROXINE) 6.6 ug/dL (4.7-13.3); TOTAL PROTEIN, SERUM 7.5 g/dL (6.4-8.2)
[2019-06-07 14:53] LABS: CHOLESTEROL 221 mg/dL (<200)
[2019-06-07 14:54] LABS: HDL CHOLESTEROL 30 mg/dL (40-60)
[2019-06-07 15:07] LABS: LIPASE 100 IU/L (73-393)
== END 2019-06-07 14:58 | disposition left against medical advice (07) ==
LOC: EDBD 13:04 → ED 13:04
PROVIDERS: Emergency Medicine
DX: G93.41 Metabolic encephalopathy (principal); E03.9 Hypothyroidism, unspecified
CPT/HCPCS: 36415; 82962; G0480; J7030; Q0092

== ENCOUNTER 2020-04-16 22:01 | Emergency (ER) | payer MEDICAID ==
[~2020-04-16] VITALS: Ht 154.9 cm; Wt 79.4 kg
[~2020-04-16 22:01] MED LIST changes: +ACCU-CHEK GUID1 EAC3 MC; +BLOOD LANCETS1 EACH TOP; +COR10 PO; +EASY COMFORT ALCO70% TOP; +HYDROCORTISONE20 MG PO; +INSULIN SYRING1 EA29 SQ; +LANTI SQ; +LIPI10 PO; +METFORMIN500 M1 PO; +TEST STRIPS1 EACH MC
[2020-04-16 22:12] VITALS: Ht 154.9 cm; Wt 79.4 kg
[2020-04-16 23:23] LABS: microscopic required? NO
[2020-04-16 23:26] LABS: UA SPECIFIC GRAVITY >=1.030 (1.005-1.035); urine erythrocyte NEGATIVE (NEGATIVE)
[2020-04-17 00:27] LABS: BASOPHIL % 0.1 % (0-2); PLATELET COUNT 222 x10^3mcL (130-400)
[2020-04-17 00:41] LABS: CALCIUM 8.3 mg/dL (8.5-10.1); CARBON DIOXIDE 26.4 mmol/L (21-32); CHLORIDE SERUM 103 mmol/L (98-107); CREATININE SERUM 0.7 mg/dL (0.6-1.0); GFR1 > 60 mL/min; GLUCOSE SERUM 148 mg/dL (74-106); POTASSIUM SERUM 3.5 mmol/L (3.5-5.1); SODIUM SERUM 138 mmol/L (136-145)
[2020-04-17 00:45] LABS: ALKALINE PHOSPHATASE 43 U/L (46-116); ALT/SGPT 62 U/L (14-59); AST/SGOT 11 U/L (15-37); BILIRUBIN TOTAL 0.37 mg/dL (0.20-1.00)
[2020-04-17 00:48] LABS: TOTAL PROTEIN, SERUM 5.8 g/dL (6.4-8.2)
[2020-04-17 01:36] VITALS: BP 138/86
== END 2020-04-17 01:37 | disposition home or self-care (01) ==
LOC: ED 22:01
PROVIDERS: Emergency Medicine
DX: R53.1 Weakness (principal); R53.83 Other fatigue; R10.9 Unspecified abdominal pain; R30.0 Dysuria; R11.0 Nausea; M54.9 Dorsalgia, unspecified; E03.9 Hypothyroidism, unspecified; Z90.710 Acquired absence of both cervix and uterus; Z20.828 Contact with and (suspected) exposure to other viral communicable diseases
CPT/HCPCS: 82962; J1720; J7030; Q0092

== ENCOUNTER 2020-05-14 13:15 | Inpatient (IN) | payer SELFPAY ==
[~2020-05-14] VITALS: Ht 162.6 cm; Wt 86.6 kg
[2020-05-14 13:33] VITALS: Ht 162.6 cm; Wt 86.6 kg
--- NOTE | 2020-05-14 13:39 | NUR ---
TRIAGED. AWAITING IN LOBBY FOR A BED.
--- NOTE | 2020-05-14 14:34 | NUR ---
PT IN ED FOR BILATER FLANK PAIN X 3 WEEKS. DENIES DYSURIA, URGENCY OR FREQUENCY. FLANK PAIN IS 10/10, PT ALSO HAS INCREASED WEKANESS AND FATIGUE, PT STATES SHE UNABLE TO WALK DUE TO WEAKNESS. VSS, MELODY MONITOR
[2020-05-14 14:57] LABS: BASOPHIL % 0.3 % (0-2); PLATELET COUNT 243 x10^3mcL (130-400); RED CELL DISTRIBUTION WIDTH 13.4 % (11.5-14.5)
--- NOTE | 2020-05-14 14:59 | NUR ---
PT UNABLE TO URINATE AT THIS TIME.
[2020-05-14 15:09] LABS: CALCIUM 9.3 mg/dL (8.5-10.1); CARBON DIOXIDE 28.3 mmol/L (21-32); CHLORIDE SERUM 103 mmol/L (98-107); CREATININE SERUM 0.6 mg/dL (0.6-1.0); GFR1 > 60 mL/min; GLUCOSE SERUM 90 mg/dL (74-106); POTASSIUM SERUM 3.9 mmol/L (3.5-5.1); SODIUM SERUM 139 mmol/L (136-145)
[2020-05-14 15:13] LABS: ALBUMIN 3.7 g/dL (3.4-5.0); ALKALINE PHOSPHATASE 45 U/L (46-116); ALT/SGPT 50 U/L (14-59); AST/SGOT 16 U/L (15-37); BILIRUBIN TOTAL 0.4 mg/dL (0.20-1.00); LIPASE 110 IU/L (73-393); TOTAL PROTEIN, SERUM 6.5 g/dL (6.4-8.2)
--- NOTE | 2020-05-14 15:30 | NUR ---
PT LAYING WITH EYES CLOSED AND NO DISTRESS WITH VSS. WILL CONTINUE TO MONITOR
[2020-05-14] MEDS ORDERED: ARMOUR THYROID30 MG PO (16:50)
[2020-05-14] MEDS ORDERED: DULOXETINE HYDR30 MG PO (16:51)
--- NOTE | 2020-05-14 16:55 | NUR ---
2ND LITER INITIATED AND VSS. PT AWAITING ALL RESULTS AT THIS TIME
--- NOTE | 2020-05-14 17:01 | NUR ---
DR CORTES AT BEDSIDE FOR REEVAL
--- NOTE | 2020-05-14 18:27 | NUR ---
PT DOES NOT WANT TO BE DC HOME. DR CORTES AWARE AND TALKING TO PT
--- NOTE | 2020-05-14 18:28 | NUR ---
PT TO BE ADMITTED
[2020-05-14 19:06] LABS: microscopic required? NO
--- NOTE | 2020-05-14 19:10 | NUR ---
pt refusing iv zosyn. wants to speak with dr geiger about ab. report given to shilo shift supervisor rn isis
[2020-05-14 19:29] LABS: UA SPECIFIC GRAVITY 1.025 (1.005-1.035); urine erythrocyte NEGATIVE (NEGATIVE)
[2020-05-14 20:12] LABS: AMPHETAMINE QUAL UR NONE DETECTED (See below)
--- NOTE | 2020-05-14 21:05 | NUR ---
GAVE REPORT TO JOSE DE JESUS SANDERS TO ASSUME CARE OF PATIENT.
[2020-05-14 21:21] LABS: CHOLESTEROL/HDL RATIO 4.5
[2020-05-14 21:43] VITALS: BP 148/83
--- NOTE | 2020-05-14 21:53 | NUR ---
RECEIVED PT FROM ER, PT ADMIT FOR DEHYDRATION, R/O SEPSIS, HYPOTHROID. PT IS A/O X4, VERBAL RESPONSIVE. LUNG SOUND CLEAR BILATERAL, NO COUGH, NO SOB. PT IS ON TELE 38, NSR, DENY ANY CHEST PAIN OR DISCOMFORT, BOWEL SOUND PRESENT ALL 4 QUADRANTS, NO DISTENTION, NO TENDER. STILL C/O AUGIE FLANK PAIN 8/10, PEDAL PULSE PRESENT BOTH FEET, NO EDEMA, IV AT RIGHT WRIST, NO LEAKING, NO INFILTRATION. THERE ARE MULITPLE LESIONS AT VAGINAL AREA. NO DRAINAGE. ALL ADLS ASSIST, ALL NEED MET, CALL LIGHT IN REACH, WILL CONTINUE TO MONITOR.
--- NOTE | 2020-05-15 04:01 | NUR ---
Afebrile. No significant change in condition noted. Ambulated. Generalized weakness noted. Assistance provided. Denies pain. Denies n/v. Safety maintained. Call light within reach.
[2020-05-15 05:45] VITALS: BP 129/77
[2020-05-15 07:04] LABS: BASOPHIL % 0.3 % (0-2); PLATELET COUNT 224 x10^3mcL (130-400)
--- NOTE | 2020-05-15 07:36 | NUR ---
RECEIVED PATIENT FROM MARILYN DELA CRUZ. PATIENT OBSERVED AMBULATING TO BATHROOM WITHOUT ASSISTANCE. PATIENT ALERT AND ORIENTED, STATES SHE IS HAVING MILD PAIN TO BILATERAL FLANKS, 5/10 PAIN BUT TOLERABLE. STATES SHE DOES NOT NEED PAIN MEDICATION DUE TO HER PCP INSTRUCTIONS. SPOKE WITH PATIENT ABOUT PLAN OF CARE TODAY INCLUDING MEDICATIONS AND ACCUCHECKS. PATIENT AWARE AND AGREES, WILL WAIT FOR MEDICAL TEAM TO ARRIVE TO SEE PATIENT. PATIENT AWARE TO USE CALL LIGHT FOR ASSISTANCE AND AGREEABLE TO CARE PLAN TODAY.
[2020-05-15 07:37] LABS: CALCIUM 8.2 mg/dL (8.5-10.1); CARBON DIOXIDE 28.9 mmol/L (21-32); CHLORIDE SERUM 106 mmol/L (98-107); CREATININE SERUM 0.5 mg/dL (0.6-1.0); GFR1 > 60 mL/min; GLUCOSE SERUM 73 mg/dL (74-106); MAGNESIUM 1.7 mg/dL (1.8-2.4); PHOSPHOROUS 4.2 mg/dL (2.5-4.9); POTASSIUM SERUM 3.6 mmol/L (3.5-5.1); SODIUM SERUM 143 mmol/L (136-145)
[2020-05-15 09:01] VITALS: BP 134/78
--- NOTE | 2020-05-15 09:37 | NUR ---
DR OLIVA AND DR GARCIA IN TO SPEAK WITH PATIENT. STATES WILL ORDER ADDITIONAL ULTRASOUND KIDNEYS FOR STONES AND WILL ADJUST MEDICATIONS. ALSO STATES TO DO BLADDER SCAN POST VOID. ALL QUESTIONS ADDRESSED AT THIS TIME.
--- NOTE | 2020-05-15 11:47 | NUR ---
PATIENT CURRENTLY UPSET ABOUT HYDROCORTISONE DOSAGE DOSAGE IS CURRENTLY TID FOR 60 MG TOTAL. 0600 DOSAGE WAS NOT GIVEN AND PM NURSE STATES IT WAS UNAVAILABLE FROM PHARMACY, PM NURSE ADMINISTERED 20 MG FOR 0800 DOSE. PATIENT STATES SHE HAS TO TAKE 100 MG DAILY THAT IS HER HOME DOSAGE. PAGED DR GARCIA AND WAITING RETURN CALL.
--- NOTE | 2020-05-15 12:46 | NUR ---
Discount pharmacy card and list to low cost medical clinics given to patient.
[2020-05-15 15:41] VITALS: BP 141/81
[2020-05-15] MEDS ORDERED: TYL325 PO (16:58)
[2020-05-15] MEDS ORDERED: GLU500 PO (17:00)
--- NOTE | 2020-05-15 17:39 | NUR ---
PATIENT ULTRASOUND RESULTS WERE NEGATIVE. PER MEDICAL STUDENT DR JOSE SELLERS STATES PATIENT CAN BE DISCHARGED TODAY. PATIENT INFORMED. DISCHARGE INSTRUCTIONS COMPILED AND GIVEN TO PATIENT. EXPLAINED TO PATIENT TO FOLLOW UP WITH PCP OR CONTINUITY CLINIC, NEW PRESCRIPTIONS ALSO GIVEN. PATIENT VERBALIZES UNDERSTANDING AND MADE AWARE. SIGNATURES OBTAINED, IV CATHTER REMOVED AND INTACT. TELEMETRY RETURNED TO [facility]. ALL QUESTIONS ADDRESSED. PATIENT ESCORTED DOWNSTAIRS TO LOBBY TO CALL FOR TAXI.
== END 2020-05-15 17:48 | disposition home or self-care (01) | DRG 392 ==
LOC: ED 13:15 → DU 19:15
PROVIDERS: Emergency Medicine; ADMIT Family Medicine; ATTEND Family Medicine
DX: R10.9 Unspecified abdominal pain (principal); E27.1 Primary adrenocortical insufficiency; E87.2 Acidosis; E03.9 Hypothyroidism, unspecified; E11.9 Type 2 diabetes mellitus without complications; E66.9 Obesity, unspecified; L65.9 Nonscarring hair loss, unspecified; T38.3X5A Adverse effect of insulin and oral hypoglycemic [antidiabetic] drugs, initial encounter; Z20.828 Contact with and (suspected) exposure to other viral communicable diseases; E78.00 Pure hypercholesterolemia, unspecified; F32.9 Major depressive disorder, single episode, unspecified; E78.5 Hyperlipidemia, unspecified; M79.2 Neuralgia and neuritis, unspecified; Z79.899 Other long term (current) drug therapy; Z79.891 Long term (current) use of opiate analgesic; Z79.84 Long term (current) use of oral hypoglycemic drugs; Z90.710 Acquired absence of both cervix and uterus; Z83.438 Family history of other disorder of lipoprotein metabolism and other lipidemia; Z82.49 Family history of ischemic heart disease and other diseases of the circulatory system; Z83.3 Family history of diabetes mellitus; Z80.9 Family history of malignant neoplasm, unspecified; Z63.5 Disruption of family by separation and divorce; Z68.34 Body mass index [BMI] 34.0-34.9, adult; Y92.89 Other specified places as the place of occurrence of the external cause
CPT/HCPCS: 82962; 90658; G0378; J1720; J2270; J2405; J2543; J7030; Q0092